=== PATIENT | male | born 1985 | race African-American/Black ===

== ENCOUNTER 2018-11-18 17:07 | Emergency (ER) | payer OTHER ==
[~2018-11-18] VITALS: Ht 177.8 cm; Wt 106.0 kg
[2018-11-18] MEDS ORDERED: IBUPROFEN 600MG TABLET PO STA (18:26)
[2018-11-18 18:59] LABS: BASOPHILS % 0.7 % (0.0-2.0); EOSINOPHILS % 8.3 % (0.0-5.0); HEMATOCRIT. 40.3 % (42.0-52.0); HEMOGLOBIN. 12.8 g/dL (14.0-18.0); LYMPHOCYTES % 38.1 % (20.0-50.0); MEAN CORPUSCULAR HEMOGLOBIN 27.4 pg (28.0-32.0); MEAN CORPUSCULAR VOLUME 86.2 fL (80.0-94.0); MEAN PLATELET VOLUME 7.3 fl (7.4-10.4); MONOCYTES % 10.5 % (2.0-8.0); NEUTROPHILS % 42.4 % (40.0-76.0); PLATELET 233 x1000/uL (130-400); RED BLOOD CELL COUNT 4.68 mill/uL (4.7-6.1); RED CELL DISTRIBUTION WIDTH 14.2 % (11.6-14.6)
[2018-11-18 19:04] LABS: CHLORIDE 105 mEq/L (98-107)
[2018-11-18 19:43] VITALS: BP 127/77
== END 2018-11-18 20:13 | disposition home or self-care (01) ==
LOC: ER 17:07
DX: R07.9 Chest pain, unspecified (principal); R11.2 Nausea with vomiting, unspecified; J45.909 Unspecified asthma, uncomplicated; Z90.49 Acquired absence of other specified parts of digestive tract; Z98.890 Other specified postprocedural states; Z88.8 Allergy status to other drugs, medicaments and biological substances
CPT/HCPCS: 36415; 71045; 84484; 93005; 99284

== ENCOUNTER 2024-01-13 16:42 | Emergency (ER) | payer OTHER ==
[~2024-01-13] VITALS: Ht 177.8 cm; Wt 91.0 kg
[2024-01-13 16:54] VITALS: O2SAT 99
[2024-01-13 17:40] LABS: CLARITY URINE CLEAR (CLEAR); COLOR URINE DARK YELLOW (YELLOW); GLUCOSE URINE NEGATIVE (NEGATIVE); KETONES URINE TRACE (NEGATIVE); LEUKOCYTE ESTERASE URINE NEGATIVE (NEGATIVE); NITRITE URINE NEGATIVE (NEGATIVE); OCCULT BLOOD URINE NEGATIVE (NEGATIVE); PH URINE 6.5 (4.5-8.0); PROTEIN URINE 2+ (NEGATIVE); SPECIFIC GRAVITY URINE 1.043 (1.005-1.030)
[2024-01-13 17:59] LABS: BACTERIA URINE NONE SEEN; MUCUS URINE 2+ /lpf (NONE/TRACE); RBC URINE NONE SEEN /hpf (0-2); WBC URINE NONE SEEN /hpf (0-2)
[2024-01-13 20:17] VITALS: BP 120/85; PULSE 87; RESP 16; TEMP 97.8
== END 2024-01-13 20:19 | disposition home or self-care (01) ==
LOC: ER 16:42
DX: R30.0 Dysuria (principal); J45.909 Unspecified asthma, uncomplicated; Z90.49 Acquired absence of other specified parts of digestive tract
CPT/HCPCS: 81003; 99283